=== PATIENT | female | born 1990 ===

== ENCOUNTER 2017-12-17 00:58 | Inpatient (IN) | payer MEDICAID, SELFPAY ==
[2017-12-17 01:59] VITALS: BMI 39.8
[2017-12-17] MEDS ORDERED: Lactated Ringer's 1,000 ML IV SCH ×2 (02:00)
[2017-12-17] MEDS ORDERED: Oxytocin 30 UNIT 30 UNITS/500 ML BAG IV PRN (02:05)
--- NOTE | 2017-12-17 02:23 | OBADHP ---
Datetime: 12/17/2017 02:06 IP Admit Plan Other: cervical ripening Admit Comment, IP Provider: 27 y.o. , LMP 03/14/17, KLAUDIA 12/19/17, EGA 39w 5d confirmed by sono at 28w 4d c/o SROM at 0030 hours. (+) Ctx, onset 0015 hours, pain scale 3/10. (+) AFM; (+) vag nal spotting at 0030 hours. care: [facility]: 1) late registrant at 26 weeks; 2) abnormal GCT = 1 63. 3hr GTT 83/176/128/133. P Ob: Primip P [employer]: 13 x monthly x 4 PMH: denies PSH: 2014, laparoscopic right ovarian cystectomy. NKDA Meds: PNV - QD Soc Hx: denies tobacco, illicit drug or EtOH use. 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 Father alive 60 y.o. - both, no med issues. No known fam h/o cancer P.E.: as above. Obese, in NAD. Awake, alert, oriented to time, person and place. 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 Accompanied by and mother in law Assessment: 27 y.o. P0, 39w 5d, PROM.; not in labor. Category 1 tracing. D/W pt cervical ripenng, possible pitocin; possible epidural for pain management. Patient expressed an understanding and agree s. Couple desires to have cord blood collected. Clinically stable. Plan: 1) Admit 2) NPO 3) IVFs 4) Continuous EFM 5) Cytotec p.o. x 1 dose 6) Pitocin 7) Epidural, upon request 8) Anticipate vagnal delivery Pelvic Type - PN: Adequate Extremities - PN: Normal Abdomen - PN: Normal Back - PN: Normal Breast - PN: Not Done Lungs - PN: Normal Heart - PN: Normal Thyroid - PN: Not Done Neurologic - PN: Normal HEENT - PN: Normal General - PN: Normal Presentation-Admit: Vertex FHR - Baseline A Provider: 140 Amniotic Fluid Color, Provider: Bloody Membranes, Provider: Ruptured Contraction Comments Provider: irregular Comments, ACOG Physical Exam: Abdomenn: obese. Gravid. Soft. Non tender Fundal height 39 cm All other sytems reviewed and are negaive Gestation - Est Wks by US: 39w 5d Pool Provider: Positive Nitrazine Provider: Positive IP Hx Assessment: The History has been Reviewed and is Current Vital Signs Provider: Reviewed IP Chief Complaint: Suspected ruptured membranes NICHD Variability Prov Fetus A: Moderate 6-25bpm NICHD Accel Fetus A IP Provider: 15X15 FHR Category Provider Fetus A: Category I NICHD Decel Fetus A IP Provider: None Dilatation, Provider: 2 Effacement, Provider: 30 Station, Provider: -3 Genitourinary Exam: Normal DTRs - PN: Not Done EGA AdmitDate IP: 39.5 IP Adm Impression: Term, intrauterine ; No Active Labor; Ruptured Membranes IP Admit Plan: Admit to unit
[2017-12-17 02:56] LABS: BASO # 0.1 K/uL (0.0-0.2); BASO % 0.6 % (0.0-2.0); EOS # 0.4 K/uL (0.0-0.7); EOS % 2.8 % (0.0-4.0); HEMOGLOBIN 11.1 g/dL (11.0-16.0); LYMPH # 3.4 K/uL (1.0-4.3); LYMPH % 27.2 % (20.0-40.0); MEAN CELL VOLUME 79.1 fL (81.0-99.0); MEAN CORPUSCULAR HEMOGLOBIN 27.5 pg (27.0-31.0); MEAN CORPUSCULAR HGB CONC 34.7 g/dL (33.0-37.0); MEAN PLATELET VOLUME 7.7 fL (7.2-11.7); MONO # 0.7 K/uL (0.0-0.8); MONO % 5.2 % (0.0-10.0); NEUT # 8.1 K/uL (1.8-7.0); NEUT % 64.2 % (50.0-75.0); RBC 4.03 Mil/uL (3.80-5.20); RED CELL DISTRIBUTION WIDTH 15.1 % (11.5-14.5); WHITE BLOOD COUNT 12.6 K/uL (4.8-10.8)
[2017-12-17 03:05] LABS: SQUAMOUS EPITHIAL 3 /hpf (0-5); URINE BACTERIA RARE (<OCC); URINE BILIRUBIN NEGATIVE (NEGATIVE); URINE BLOOD 2+ (NEGATIVE); URINE CLARITY Clear (Clear); URINE COLOR Yellow (YELLOW); URINE GLUCOSE (UA) NORMAL (Normal); URINE LEUKOCYTE ESTERASE NEG Leu/uL (Negative); URINE NITRATE NEGATIVE (NEGATIVE); URINE PROTEIN NEGATIVE (NEGATIVE); URINE UROBILINOGEN NORMAL mg/dL (0.2-1.0)
[2017-12-17 03:17] LABS: ALB/GLOB RATIO 1.1 (1.0-2.1); ALBUMIN 3.3 g/dL (3.5-5.0); ALT/SGPT 12 U/L (9-52); AST/SGOT 15 U/L (14-36); BLOOD UREA NITROGEN 6 mg/dL (7-17); CALCIUM 9.1 mg/dl (8.6-10.4); GFR AFRICAN-AMERICAN > 60; GFR NON-AFRICAN AMERICAN > 60
[2017-12-17] MEDS ORDERED: Nalbuphine 20 mg/ml Inj (1 ml) IVP ONE (08:05)
[2017-12-17] MEDS ORDERED: Oxytocin 30 UNIT 30 UNITS/500 ML BAG IV SCH (17:45)
[2017-12-17] MEDS ORDERED: Penicillin G 5 Million Unit Vial IVPB ONE (17:54)
[2017-12-17] MEDS ORDERED: Bupivacaine HCl/FentaNYL Cit 100 ML EPI ONE (19:57)
--- NOTE | 2017-12-17 20:36 | OBPN ---
Datetime: 12/17/2017 09:20 IP Progress Impression: Premature rupture of membranes IP Procedures: Sterile Vag Exam IP Progress Plan: Continue present management; Cervical Ripening Membranes, Provider: Ruptured Amniotic Fluid Color, Provider: Clear Contraction Comments Provider: occasional FHR - Baseline A Provider: 135 IP Progress Note Comment: Patient seen and examined at bedside. Patient is resting comfortably, s/p nubain and phenergan. Endorses +FM, denies CTX, VB. VSS SVE: Closed/thick/high A/P: 25 year old at 39w5d presented with PROM -Stable, afebrile -CEFM and TOCO -Recieved one dose of Cytotec 50mcg at 3:10am -Cytotec 50mcg q4H for cervical rippening -Plan discussed with Dr Aletha Brunner DO PGY-1 Attending Note: Pt was seen and examined with Resident and I agree with the above. Vital Signs Provider: Reviewed; Within Normal Limits NICHD Accel Fetus A IP Provider: 15X15 FHR Category Provider Fetus A: Category I NICHD Variability Prov Fetus A: Minimal - Undetectable to <5bpm Dilatation, Provider: closed Effacement, Provider: thick Station, Provider: high NICHD Decel Fetus A IP Provider: None Datetime: 12/17/2017 02:06 Pool Provider: Positive Nitrazine Provider: Positive Gestation - Est Wks by US: 39w 5d Presentation-Admit: Vertex
[2017-12-17] MEDS ORDERED: Oxytocin 30 UNIT 30 UNITS/500 ML BAG IV ONE (20:53)
[2017-12-18] MEDS ORDERED: Lidocaine 2% Inj (20ml) ONE (01:07)
[2017-12-18] MEDS ORDERED: Bupivacaine HCl 0.25% PF (10 ml) Inj ONE (03:24)
[2017-12-18] MEDS ORDERED: Bupivacaine HCl/FentaNYL Cit 100 ML EPI ONE (03:39)
[2017-12-18] MEDS ORDERED: cefOXitin IV 2 gm in Saline 2 GM/50 ML BAG IVPB ONE (04:45)
[2017-12-18] MEDS ORDERED: Sodium Citrate/Citric Acid 15 ml Sol ONE (04:46)
[2017-12-18] MEDS ORDERED: cefOXitin IV 2 gm in Dextrose 2 GM/50 ML BAG IVPB ONE (04:48)
[2017-12-18] MEDS ORDERED: Sodium Citrate/Citric Acid 15 ml Sol PO ONE (04:48)
[2017-12-18] MEDS ORDERED: Lidocaine 2% MPF (5 ml) Inj ONE (04:56)
[2017-12-18] MEDS ORDERED: Sodium Bicarbonate (8.4%) 50 Meq Syringe ONE (05:01)
[2017-12-18] MEDS ORDERED: cefOXitin 2 GM in Sodium Chloride 0.9% 100 ML IVPB ONE (05:15)
[2017-12-18] MEDS ORDERED: Morphine 1 mg/ml preservative-free Inj(Duramorph) ONE (05:57)
[2017-12-18] MEDS ORDERED: Naloxone 0.4 mg/ml Inj (Adult) IVP PRN (06:08)
[2017-12-18] MEDS ORDERED: DiphenhydrAMINE 50 mg/ml Inj IVP PRN (06:08)
[2017-12-18] MEDS ORDERED: Oxycodone/Acetaminophen 5/325 mg Tab PO PRN (06:31)
--- NOTE | 2017-12-18 06:50 | PCM.SURG1 ---
Surgeon's Initial Post Op Note - Surgeon's Notes Surgeon: Dr Pompa Retail Pharmacist: Kristie Dubose( Resident ) Type of Anesthesia: General Endo Anesthesia Administered By: Dr Avery Carvajal Pre-Operative Diagnosis: IUP at 39+ Weeks in Labor. Areest of Descent. Operative Findings: Live female infant with BW of 7Ibs 9oz and scores of 9 and 9. Fundal placenta with clear amniotic fluid. Tight nuchal cord X1. Omental and bowel adhesions to the posterior wall of the uterus, left fallopian tube involved with fibrinous adhesions. Two fibroid nodules palpated on the posterior wall of the uterus. IVFluids- 1500mls. EBL- 600mls. Urine output- 400mls. Post-Operative Diagnosis: Same as Preop Diagnosis Operation Performed: Primary Low Transverse Section Specimen/Specimens Removed: Umbilical cord blood Estimated Blood Loss: EBL {In ML}: 600 Post-Op Condition: Good Date of Surgery/Procedure: 12/18/17 Time of Surgery/Procedure: 06:52
[2017-12-18] MEDS: Simethicone 80 mg Chewtab PO SCH ×4 (10:14→21:35)
--- NOTE | 2017-12-18 11:47 | OBDS ---
DELIVERY PERSONNEL Delivery Doctor: Jess Pompa MD Anesthesiologist: Rafiq Carvajal MD MATERNAL INFORMATION Delivery Anesthesia: Epidural Provider Comments: Primary delivery of a viable female with scores of 9 and 9. Placenta fundal with nuchal cord X 1, tight. EBL- 600mls. LABOR SUMMARY EDC: 12/19/2017 00:00 No. Babies in Womb: 1 Attempted: No Labor Anesthesia: Epidural LABOR INFORMATION Reason for Induction: Not Applicable Onset of Labor: 12/17/2017 00:15 Complete Dilatation: 12/18/2017 00:26 Cervical Ripening Agents: Cytotec @ 50mcg PO given Oxytocin: Augmentation Group B Beta Strep: Negative Steroids Given: None Reason Steroids Not Administered: Not Applicable MEMBRANES Membranes Rupture Method: Spontaneous Rupture of Membranes: 12/17/2017 00:10 Length of Rupture (hrs): 29.35 Amniotic Fluid Color: Clear Amniotic Fluid Amount: Moderate STAGES OF LABOR Stage 1 hrs: 24 Stage 1 min: 11 Stage 2 hrs: 5 Stage 2 min: 5 Stage 3 hrs: 0 Stage 3 min: 5 Total Time in Labor hrs: 29 Total Time in Labor min: 21 CSECTION DELIVERY Primary Indication: Arrest of Descent CSection Urgency: Non Elective CSection Incidence: Primary Labor: Labor CSection Incision: Lower Uterine Transverse Uterine Closure: Double-layer closure BABY A INFORMATION Delivery Date/Time: 12/18/2017 05:31 Method of Delivery: Born in Route : No : N/A Forceps: N/A Vacuum Extraction: N/A Shoulder Dystocia : No SHOULDER DYSTOCIA BABY A Infant Delivery Date/Time: 12/18/2017 05:31 PRESENTATION/POSITION BABY A Presentation: Cephalic Cephalic Presentation: Vertex Breech Presentation: N/A PLACENTA INFORMATION BABY A Placenta Delivery Time : 12/18/2017 05:36 Placenta Method of Delivery: Manual Removal Placenta Status: Delivered SCORES BABY A Heart Rate 1 min: >100 bpm Resp Effort 1 min: Good Cry Reflex Irritability 1 min: Cough or Sneeze or Pulls Away Muscle Tone 1 min: Active Motion Color 1 min: Body [place], Extremities Blue SCORE 1 MIN: 9 Heart Rate 5 min: >100 bpm Resp Effort 5 min: Good Cry Reflex Irritability 5 min: Cough or Sneeze or Pulls Away Muscle Tone 5 min: Active Motion Color 5 min: Body [place], Extremities Blue SCORE 5 MIN: 9 INFORMATION BABY A Gestational Age at Delivery: 39.5 Gestational Status: Term Infant Outcome : Liveborn Condition : Stable Infant Sex: Female IDENTIFICATION/MEDS BABY A ID Band Number: [id number] ID Band Location: Left Leg; Left Arm Sensor Applied: Yes Sensor Number: [id number] Sensor Location : Cord Clamp WEIGHT/LENGTH BABY A Birthweight (gms): 3445 Infant Weight (lb): 7 Weight (oz): 9 Infant Length Inches: 19.50 Length cms: 49.5 CORD INFORMATION BABY A Nuchal Cord : Around Neck x1, Tight Cord Blood Taken: Yes Suction: Mouth; Nose ASSESSMENT BABY A Complications: None Physical Findings at Delivery: Within Normal Limits Respirations: Appears Normal Field Return Repairer/ALS Called : No Care By: DR CHONG
--- NOTE | 2017-12-18 11:48 | OBPN ---
Datetime: 12/18/2017 04:43 IP Progress Note Comment: IUP at 39.6wks in Labor. Arrest of descent over 4 hours Category 2 tracing Plan: D/W Patient. Offered. Pt consented. Consents obtained.
--- NOTE | 2017-12-18 11:48 | OBPN ---
Datetime: 12/18/2017 04:43 IP Progress Impression Other: Category 2 tracing IP Progress Impression: Arrest of dilatation/descent IP Informed Consent Obtain: Section Delivery IP Procedures: Sterile Vag Exam IP Progress Plan: Deliver- Section FHR - Baseline A Provider: 140s Gestation - Est Wks by US: 39.6 Presentation-Admit: Vertex NICHD Accel Fetus A IP Provider: 15X15 FHR Category Provider Fetus A: Category II NICHD Variability Prov Fetus A: Moderate 6-25bpm Dilatation, Provider: 10 Effacement, Provider: 100 Station, Provider: -2 NICHD Decel Fetus A IP Provider: None Datetime: 12/18/2017 02:30 Membranes, Provider: Ruptured Amniotic Fluid Color, Provider: Clear IP Progress Note Comment: IUP at 39.6wks in Labor, Fully dilated since 00:30 Prolonged ROM Category 2 Tracing Plan: Continue monitoring labor Reassess for labor progress.
--- NOTE | 2017-12-18 12:03 | OP ---
PROCEDURE DATE: 12/18/2017 PREOPERATIVE DIAGNOSES: Intrauterine at 39 weeks in labor with arrest of descent in the second stage of labor. PROCEDURE DONE: Primary low-transverse section. SURGEON. Albino Pompa M.D. SWAHILI TEACHER: Dr. Richardson and Dr. Kristie Brunner, ([facility] resident). Assistance to this procedure was needed for exposure of tissues and help in the delivery of the baby. The assistants remained with the surgery throughout its entire length. TYPE OF ANESTHESIA: Spinal. ANESTHESIA ADMINISTERED BY: Avery Carvajal MD FINDINGS: Live female with weight of 7 pounds 9 ounces, delivered in the left occipital posterior position with a nuchal cord x1 tightly around the neck. The placenta was fundal with a clear amniotic fluid. There were some omental and bowel adhesions in the lower half of the posterior wall of the uterus probably arriving from a previous surgery. The left ovary was kinked and had extensive fibrinous adhesions. The right fallopian tube appeared normal. Both ovaries appeared normal. There were two isolated 2.5 x 2 x 3 cm fibroid nodules palpated on the posterior wall of the uterus. IV FLUID INTAKE: 1500 mL. ESTIMATED BLOOD LOSS: 600 mL. URINE OUTPUT: 400 mL of clear urine. COMPLICATIONS: There were no complications. SAMPLES TAKEN: Included umbilical cord blood for stem cell analysis. DESCRIPTION OF PROCEDURE: After going through all the risks, benefits and alternatives to the section and having all her questions answered, the patient was sent to the OR with IV running and Waite catheter in place. The patient who already had an epidural in place was placed in a supine position with a left lateral tilt. The epidural anesthesia was topped up by the pocket assembler. The patient was then prepped and draped in the usual sterile fashion. A Pfannenstiel skin incision was made using a scalpel and this incision was carried through the subcutaneous tissues till the rectus fascia was identified. Using a Bovie device, a transverse incision was made in the rectus fascia and this was extended to both sides by means of blunt dissection and sharp dissection. The rectus muscle was lifted off the underlying rectus muscles both superiorly and inferiorly by means of a sharp dissection and blunt dissection. The rectus muscle was in the midline to expose the peritoneum, which was tented between two Licha clamps and sharply entered using Metzenbaum scissors. Once abdominal cavity was entered, the above findings were noted. The vesicouterine fold of peritoneum was identified, incised in a transverse fashion and then retracted inferiorly to expose the lower uterine segment. A low-transverse incision was made using the scalpel. This incision was carried through the myometrial layer, so the amniotic membranes were identified. Amniotic membranes were ruptured with a pickup forceps and then incision was extended to both sides in a blunt fashion. The baby, which was positioned in the left occipital posterior position with nuchal cord was delivered. The mouth and nostrils were bulb suctioned and the three-vessel cord was clamped and cut and the baby was given to the nurse. Umbilical cord blood was obtained and the blood obtained as per the plant science professor's instruction. Placenta was removed from the uterine cavity after which the uterine was brought out of the abdominal cavity. Abdominal cavity was cleaned of all debris using dry laparotomy pad. The above findings were noted on the uterus after bringing it out of the abdominal cavity. The uterine incision was then closed up in two layers using Vicryl #0, the first layer in a running locked fashion and the second layer in a running fashion imbricating the first layer. This was conducted until complete hemostasis was noted. Irrigation of the pelvis with warm normal saline was undertaken at this point and the paracolic gutters cleaned off all blood clots. Once hemostasis was noted, all instruments and laparotomy pads were removed from the abdominal cavity and the uterus was returned into the abdominal cavity. Attention was turned to the anterior abdominal wall, which was closed in layers with 2-0 CAPROSYN for the peritoneum and the rectus muscles. The rectus fascia was reapproximated using Vicryl #0. The subcutaneous tissues were brought together by means of #2-0 plain catgut. The skin was closed in a subcuticular fashion using #4-0 Vicryl. All counts of instruments, laparotomy pads and needles used were correct x3 and the patient was sent to the recovery room awake and in stable condition. Albino Pompa MD [facility]
[2017-12-19] MEDS: Oxycodone/Acetaminophen 5/325 mg Tab PO PRN ×4 (00:04→23:08)
[2017-12-19] MEDS ORDERED: Bisacodyl 5mg EC Tab PO ONE (06:31)
--- NOTE | 2017-12-19 08:33 | OBPPN ---
Datetime: 12/19/2017 08:22 PP Pain Prov: Within normal limits PP Nausea Prov: Denies PP Flatus Prov: Yes PP BM Prov: No PP Breasts Prov: Normal PP Heart Prov: Normal PP Lungs Prov: Normal PP Abdomen/Uterus Prov: Normal PP Lochia Prov: Normal PP Vulva/Perineum Prov: Normal PP CVA Tenderness Prov: Normal PP Extremities Prov: Normal PP C/S Incision Prov: Normal PP Progress Prov: Normal PP Impression Prov: Normal progression PP Plan Prov: Continue present management PP Progress Note Prov: pt seen adn examined and reports pain controlled with medicain. pt is tolerat ing diet without nause, vomiting, ambuating, voiding, passing flatus, denies any fever, chills, cp, s ob, lightheadness, headahces. pt is . VSS PE GEN NAD< AAO x 3 RESP: CTAB?L CVS: RRR< +S1/S2 ABD: Soft, NT/ND, +BS, no guarding, no rebound tendneren no rigidty, FUNDUS: FIrm, at level of umbilucsi INCSION C/D/I VE: Minimal lochia, non fouls smelling EXT: no calf tenderness, negative betty's sign A/P s/p PLTCD POD #1 doing well -f/u am labs -pain manamgnet -encourage breast feedign adn ambaution -abdominal binder, incenetive psriomenter -bowel regimin prn IP PP Procedures: None Vital Signs Provider PP: Reviewed; Within Normal Limits
[2017-12-19 08:49] LABS: BASO % 0.3 % (0.0-2.0); EOS # 0.2 K/uL (0.0-0.7); EOS % 1.7 % (0.0-4.0); HEMOGLOBIN 9.5 g/dL (11.0-16.0); LYMPH % 14.8 % (20.0-40.0); MEAN CORPUSCULAR HEMOGLOBIN 27.3 pg (27.0-31.0); MEAN CORPUSCULAR HGB CONC 34.1 g/dL (33.0-37.0); MEAN PLATELET VOLUME 7.5 fL (7.2-11.7); MONO # 0.4 K/uL (0.0-0.8); MONO % 3.3 % (0.0-10.0); NEUT # 10.7 K/uL (1.8-7.0); NEUT % 79.9 % (50.0-75.0); RBC 3.47 Mil/uL (3.80-5.20); RED CELL DISTRIBUTION WIDTH 15.5 % (11.5-14.5); WHITE BLOOD COUNT 13.4 K/uL (4.8-10.8)
[2017-12-19] MEDS: Simethicone 80 mg Chewtab PO SCH ×4 (09:35→21:35)
[2017-12-20] MEDS: Oxycodone/Acetaminophen 5/325 mg Tab PO PRN ×2 (07:02→11:20)
--- NOTE | 2017-12-20 09:09 | OBPPN ---
Datetime: 12/20/2017 08:43 PP Pain Prov: Within normal limits PP Nausea Prov: Denies PP Flatus Prov: Yes PP BM Prov: Yes PP Heart Prov: Normal PP Lungs Prov: Normal PP Abdomen/Uterus Prov: Normal PP Lochia Prov: Normal PP Extremities Prov: Normal PP C/S Incision Prov: Normal PP Progress Prov: Normal PP Impression Prov: Normal progression PP Plan Prov: Continue present management PP Progress Note Prov: Patient seen and examined at bedside. Per nursing no acute events overnight. Patient is doing well, pain is controlled. Lochia is moderate. Ambulating and tolerating diet. Passin g flatus, had a BM. Breast feeding. Denies headaches, dizziness, cp, palpitations, sob, urinary sympt oms. VS: 108/70 96 97.8 Gen: AAOx3 Abd: Soft, appropriately tender, incision c/d/i Ext: No clubbing, cyanosis, edema; no calf tenderness Labs: 12.6>11.1/31.9<395 13.4>9.5/27.8<348 B positive Rubella immune A/P: 25 year old at 39w6d s/p PLTCD 2/2 arrest of descent POD#2 -Stable, afebrile -Pain control : motrin and percocet prn -Encourage ambulation and hydration -Encourage and ISS use -Continue routine care -Anticipate d/c home tomorrow -Plan discussed with Dr Navdeep latif wth above pt seen and examined cont current mangament anticps d c in am Svitlana Brunner DO PGY-1 Vital Signs Provider PP: Reviewed; Within Normal Limits
[2017-12-20] MEDS: Simethicone 80 mg Chewtab PO SCH ×4 (09:24→22:18)
[2017-12-21 00:31] VITALS: RESP 20
--- NOTE | 2017-12-21 08:18 | CP.PCM.DIS ---
Provider - Provider Date of Admission: 12/17/17 02:00 Attending physician: Kacy Izaguirre MD Time Spent in preparation of Discharge (in minutes): 35 Hospital Course - Lab Results Lab Results: Most Recent Lab Values WBC 13.4 K/uL (4.8-10.8) H 12/19/17 08:38 RBC 3.47 Mil/uL (3.80-5.20) L 12/19/17 08:38 Hgb 9.5 g/dL (11.0-16.0) L 12/19/17 08:38 Hct 27.8 % (34.0-47.0) L 12/19/17 08:38 MCV 80.0 fL (81.0-99.0) L 12/19/17 08:38 MCH 27.3 pg (27.0-31.0) 12/19/17 08:38 MCHC 34.1 g/dL (33.0-37.0) 12/19/17 08:38 RDW 15.5 % (11.5-14.5) H 12/19/17 08:38 Plt Count 348 K/uL (130-400) 12/19/17 08:38 MPV 7.5 fL (7.2-11.7) 12/19/17 08:38 Neut % (Auto) 79.9 % (50.0-75.0) H 12/19/17 08:38 Lymph % (Auto) 14.8 % (20.0-40.0) L 12/19/17 08:38 [place] % (Auto) 3.3 % (0.0-10.0) 12/19/17 08:38 Eos % (Auto) 1.7 % (0.0-4.0) 12/19/17 08:38 Baso % (Auto) 0.3 % (0.0-2.0) 12/19/17 08:38 Neut # (Auto) 10.7 K/uL (1.8-7.0) H 12/19/17 08:38 Lymph # (Auto) 2.0 K/uL (1.0-4.3) 12/19/17 08:38 [place] # (Auto) 0.4 K/uL (0.0-0.8) 12/19/17 08:38 Eos # (Auto) 0.2 K/uL (0.0-0.7) 12/19/17 08:38 Baso # (Auto) 0.0 K/uL (0.0-0.2) 12/19/17 08:38 Sodium 134 mmol/L (132-148) 12/17/17 02:50 Potassium 3.9 mmol/L (3.6-5.2) 12/17/17 02:50 Chloride 103 mmol/L (98-107) 12/17/17 02:50 Carbon Dioxide 20 mmol/L (22-30) L 12/17/17 02:50 Anion Gap 14 (10-20) 12/17/17 02:50 BUN 6 mg/dL (7-17) L 12/17/17 02:50 Creatinine 0.4 mg/dL (0.7-1.2) L 12/17/17 02:50 Est GFR ( Amer) > 60 12/17/17 02:50 Est GFR (Non-Af Amer) > 60 12/17/17 02:50 Random Glucose 85 mg/dL (65-105) 12/17/17 02:50 Calcium 9.1 mg/dl (8.6-10.4) 12/17/17 02:50 Total Bilirubin 0.2 mg/dL (0.2-1.3) 12/17/17 02:50 AST 15 U/L (14-36) 12/17/17 02:50 ALT 12 U/L (9-52) 12/17/17 02:50 Alkaline Phosphatase 96 U/L (38-126) 12/17/17 02:50 Total Protein 6.5 g/dL (6.3-8.3) 12/17/17 02:50 Albumin 3.3 g/dL (3.5-5.0) L 12/17/17 02:50 Globulin 3.1 gm/dL (2.2-3.9) 12/17/17 02:50 Albumin/Globulin Ratio 1.1 (1.0-2.1) 12/17/17 02:50 Urine Color Yellow (YELLOW) 12/17/17 02:50 Urine Clarity Clear (Clear) 12/17/17 02:50 Urine pH 6.0 (5.0-8.0) 12/17/17 02:50 Ur Specific [place] 1.016 (1.003-1.030) 12/17/17 02:50 Urine Protein Negative mg/dL (NEGATIVE) 12/17/17 02:50 Urine Glucose (UA) Normal mg/dL (Normal) 12/17/17 02:50 Urine Ketones Negative mg/dL (NEGATIVE) 12/17/17 02:50 Urine Blood 2+ (NEGATIVE) H 12/17/17 02:50 Urine Nitrate Negative (NEGATIVE) 12/17/17 02:50 Urine Bilirubin Negative (NEGATIVE) 12/17/17 02:50 Urine Urobilinogen Normal mg/dL (0.2-1.0) 12/17/17 02:50 Ur Leukocyte Esterase Neg Christy/uL (Negative) 12/17/17 02:50 Urine WBC (Auto) 3 /hpf (0-5) 12/17/17 02:50 Urine RBC (Auto) 18 /hpf (0-3) H 12/17/17 02:50 Ur Squamous Epith Cells 3 /hpf (0-5) 12/17/17 02:50 Urine Bacteria Rare (<OCC) 12/17/17 02:50 RPR Nonreactive (NONREACTIVE) 12/17/17 02:50 HIV 1&2 Antibody Screen Negative (NEGATIVE) 12/17/17 02:50 Blood Type B POSITIVE 12/17/17 02:50 Antibody Screen Negative 12/17/17 02:50 - Hospital Course Hospital Course: 27 year female who initially presented at 39W5D on 12/17/17 with PROM. Patient underwent trial of spontaneous vaginal deliver. Patient failed trial of vaginal deliver due to arrest of dilation/descent. Patient had primary deliver of viable female infant with score of 9 and 9. Patient tolerated well and there were no post-op complications. Patient to be discharged home. She is too take pain medications as need, continue to take vitamins while , no intercourse/tampon/vaginal insertion for 6 weeks. Patient asked to follow up with primary OBGYN in 6 weeks. She is agreeable to plan and medications. Discharge Exam - Head Exam Head Exam: ATRAUMATIC, NORMAL INSPECTION, NORMOCEPHALIC - Eye Exam Eye Exam: EOMI, Normal appearance - ENT Exam ENT Exam: Mucous Membranes Moist - Neck Exam Neck exam: Normal Inspection - Respiratory Exam Respiratory Exam: Clear to PA & Lateral, NORMAL BREATHING PATTERN - Cardiovascular Exam Cardiovascular Exam: RRR, +S1, +S2 - GI/Abdominal Exam GI & Abdominal Exam: Normal Bowel Sounds, Soft. absent: Tenderness Additional comments: Incision c/d/i - Extremities Exam Extremities exam: normal inspection - Neurological Exam Neurological exam: Oriented x3 - Psychiatric Exam Psychiatric exam: Normal Affect, Normal Mood - Skin Skin Exam: Dry, Intact, Normal Color, Warm Discharge Plan - Discharge Medications Prescriptions: Ibuprofen [Motrin] 600 mg PO Q6H PRN #30 tab PRN Reason: Pain, Mild (1-3) Ibuprofen [Motrin Tab] 600 mg PO Q4 PRN #30 tab PRN Reason: Pain, Mild (1-3) oxyCODONE/Acetaminophen [Percocet 5/325 mg Tab] 1 tab PO Q4H PRN #10 tab PRN Reason: Pain, Moderate (4-7) - Follow Up Plan Condition: GOOD Disposition: HOME/ ROUTINE Additional Instructions: 1. Continue to take pain medications as needed 2. Continue to take vitamins while 3. No intercourse or tampons, or anything inserted into the vagina for 6 weeks 4. Follow up with your primary OBGYN in 6 weeks 5. For any new or worsening concerns, return to the ER
[2017-12-21] MEDS: Simethicone 80 mg Chewtab PO SCH (10:09)
--- NOTE | 2017-12-21 15:22 | OBDCSUM ---
Datetime: 12/21/2017 09:03 Discharged to, Provider: Home Follow up at, Provider: KRISTYN Disch Instr Activity: Normal activity; May Shower Disch Instr Diet: Regular Discharge Diet restrict Prov: none Discharge Diagnosis, Provider: Term Delivered Discharge Time: 12/21/2017 09:03 Follow up in weeks, Provider: 1 week Disch Referrals: None Disch Activity Restrictions: No exercising; No lifting; No driving; Minimize walking; Minimize stair -climbing; No sexual activity; Nothing in vagina - [place], tampons, douche Discharge Comment, Provider: no sex percocetr f/u in 1week
--- NOTE | 2017-12-21 15:22 | OBPPN ---
Datetime: 12/21/2017 11:45 PP Pain Prov: Within normal limits PP Nausea Prov: Denies PP Flatus Prov: Yes PP BM Prov: Yes PP Impression Prov: Normal progression PP Plan Prov: Continue present management; Discharge PP Progress Note Prov: Patient seen and examined at bedside. Per nursing no acute events overnight. Patient reports pain is well controlled on current regimen. Lochia is mild. Ambulating and tolerating diet. Passing flatus, and BM. Breast feeding. Denies chest pain, shortness of breathheadaches, dizzi ness, palpitations, urinary symptoms. VS: 119/85 98 97.8 Gen: NAD, AAOx3 CV: RRR, +S1, +S2 Pulm: CTA b/l Abd: Soft, mildly tender, incision c/d/i Ext: No clubbing, cyanosis, edema; no calf tenderness Labs: 12.6>11.1/31.9<395 13.4>9.5/27.8<348 B positive Rubella immune A/P: 25 year old at 39w6d s/p PLTCD 2/2 arrest of descent POD#3 -Stable, afebrile -Continue routine care -Pain control -Encourage ambulation and hydration -Encourage and ISS use -Will discharge today; patient to follow up with her primary OBGYN in 6 weeks -Plan discussed with Dr Jane Epstein DO PGY1 (Annotations: Data stored by CPN on behalf of user) IP PP Procedures: None Vital Signs Provider PP: Reviewed; Within Normal Limits
[2017-12-21 17:32] VITALS: BP 119/85; PULSE 98; TEMP 98.8; O2SAT 100
== END 2017-12-21 13:30 | disposition home or self-care (01) | DRG 371 ==
LOC: C.EROB 00:58 → C.4D 02:00 → C.4M 12-18 09:10
PROVIDERS: ADMIT Obstetrics & Gynecology; ATTEND Obstetrics & Gynecology
PROC: 10D00Z1 Extraction of Products of Conception, Low, Open Approach (ICD-10-PCS; principal; 2017-12-17)
DX: O69.1XX0 Labor and delivery complicated by cord around neck, with compression, not applicable or unspecified (principal); O62.0 Primary inadequate contractions; O62.1 Secondary uterine inertia; Z3A.39 39 weeks gestation of pregnancy; Z37.0 Single live birth